=== PATIENT | female | born 1980 | race Caucasian/White ===

== ENCOUNTER 2019-01-10 10:16 | Inpatient (IN) | payer OTHER ==
[2019-01-09 17:12] VITALS: BMI 20.4
[~2019-01-10] VITALS: Ht 170.2 cm; Wt 59.9 kg
[2019-01-10] VITALS (29 sets, daily range): BP systolic 99–138; BP diastolic 55–68; PULSE 66–94; RESP 10–22; Ht 170.2 cm; Wt 59.9 kg
[~2019-01-10 10:16] MED LIST: ACET325T33 PO; BISA10SU55 PR; CEFAZOLIN 2 GM/50 ML (PMX) 50 ML IVPB ONE; DENIES; DOCU-144 PO; HYDR-3980 PO; LUBI24CA7 PO; MORP-72 PO; MORP15TA92 PO; ONDA4TAB13 PO; PREM625 PO; UDMYL PO; ZOLP10TA PO
[2019-01-10] MEDS: LACTATED RINGER'S 1,000 ML IV SCH (10:54)
[2019-01-10] MEDS ORDERED: GELATIN SIZE 100 SPONGE ONE (11:35)
[2019-01-10] MEDS ORDERED: THROMBIN 5000 UNIT (RECOTHROM) VIAL ONE (11:35)
[2019-01-10] MEDS ORDERED: BUPIVACAINE 0.5%/EPI (SDV) 30 ML INJ ONE (11:35)
[2019-01-10] MEDS ORDERED: CEFAZOLIN 1 GM INJ ONE (11:35)
[2019-01-10] MEDS ORDERED: HEPARIN 1000 UNITS/ML 10 ML INJ ONE (12:01)
[2019-01-10] MEDS ORDERED: HYDROmorphONE 1 MG/5 ML IV SYRINGE IV PRN ×3 (13:00)
[2019-01-10] MEDS ORDERED: LABETALOL HCL 20MG INJ IV PRN (13:00)
[2019-01-10] MEDS ORDERED: MIDAZOLAM 1 MG/ML 2 ML INJ IV PRN (13:00)
[2019-01-10] MEDS ORDERED: MEPERIDINE 25 MG INJ IV PRN (13:00)
[2019-01-10] MEDS ORDERED: ONDANSETRON 4 MG INJ IV PRN (13:00)
[2019-01-10] MEDS ORDERED: LORAZEPAM 2 MG INJ IV PRN (13:00)
[2019-01-10] MEDS ORDERED: MIDAZOLAM 1 MG/ML 2 ML INJ ONE (13:06)
[2019-01-10] MEDS ORDERED: HYDROmorphONE 2 MG/ML SYG ONE (13:06)
[2019-01-10] MEDS ORDERED: LIDOCAINE 2% (SDV) 5 ML INJ ONE (13:06)
[2019-01-10] MEDS ORDERED: ROCURONIUM 50 MG INJ ONE (13:06)
[2019-01-10] MEDS ORDERED: PROPOFOL 20 ML ONE (13:06)
[2019-01-10] MEDS ORDERED: ONDANSETRON 4 MG INJ ONE (13:54)
[2019-01-10] MEDS ORDERED: DEXAMETHASONE 4 MG/ML 5 ML INJ ONE (13:54)
[2019-01-10] MEDS ORDERED: FENTAnyl 50 MCG/ML VIAL ONE (14:32)
[2019-01-10] MEDS ORDERED: hydrALAzine 20 MG INJ ONE (14:50)
[2019-01-10] MEDS ORDERED: ROPIVACAINE 0.5 % 30 ML VIAL ONE (16:45)
[2019-01-10] MEDS: SOD CHLORIDE 0.45% 1,000 ML IV SCH (17:07)
[2019-01-10] MEDS ORDERED: HYDROCODONE/APAP (5/325) TAB PO PRN ×2 (17:30)
[2019-01-10] MEDS ORDERED: BETHANECHOL 25 MG TAB PO PRN (17:30)
[2019-01-10] MEDS ORDERED: CEPASTAT LOZENGE MT PRN (17:30)
[2019-01-10] MEDS ORDERED: ACETAMINOPHEN 325 MG TAB PO PRN (17:30)
[2019-01-10] MEDS ORDERED: NACL 0.9% 3 ML SYG IV SCH (17:30)
[2019-01-10] MEDS ORDERED: NALOXONE (0.4 MG/ML) INJ IV PRN (17:30)
[2019-01-10] MEDS ORDERED: MEPERIDINE 100 MG INJ ONE (17:33)
[2019-01-10] MEDS ORDERED: HYDROmorphONE 1 MG/5 ML IV SYRINGE IV ONE (18:14)
[2019-01-10] MEDS: HYDROmorphONE 0.2 MG/ML PCA IV SCH (18:44)
[2019-01-10] MEDS: CEFAZOLIN 1 GM/50 ML (PMX) 50 ML IVPB SCH (18:50)
[2019-01-10] MEDS: ZOLPIDEM 5 MG TAB PO PRN (22:22)
[2019-01-10] MEDS: DIAZEPAM 5 MG TAB PO PRN (22:22)
[2019-01-11] MEDS: DIPHENHYDRAMINE 50 MG CAP PO PRN ×2 (00:01→22:42)
[2019-01-11 00:39] VITALS: BP 108/62; PULSE 88; RESP 17
[2019-01-11] MEDS: LORAZEPAM 2 MG INJ IV PRN ×2 (02:22→16:09)
[2019-01-11] MEDS: SOD CHLORIDE 0.45% 1,000 ML IV SCH ×2 (03:07→05:19)
[2019-01-11] MEDS: CEFAZOLIN 1 GM/50 ML (PMX) 50 ML IVPB SCH ×3 (05:17→11:32)
[2019-01-11] MEDS: LACTATED RINGER'S 1,000 ML IV SCH (05:37)
[2019-01-11 06:07] VITALS: BP 107/58; PULSE 78; RESP 18
[2019-01-11 08:04] VITALS: BP_SYST 100; BP_SYST 114; BP_DIAS 61; BP_DIAS 70; PULSE 68; PULSE 76; RESP 18
[2019-01-11] MEDS: ACETAMINOPHEN 1000MG/100ML IV 100 ML IVPB SCH ×3 (09:12→18:59)
[2019-01-11] MEDS: DOCUSATE SODIUM 100 MG CAP PO SCH ×2 (09:12→20:31)
[2019-01-11] MEDS: HEPARIN 5,000 UNIT/1 ML VIAL SC SCH ×2 (09:17→20:37)
[2019-01-11] MEDS: HYDROmorphONE 0.2 MG/ML PCA IV SCH (10:12)
[2019-01-11] MEDS: DIAZEPAM 5 MG TAB PO PRN ×4 (10:28→22:42)
[2019-01-11] MEDS: HYDROCODONE/APAP (10/325) TAB PO PRN ×2 (11:32→15:31)
[2019-01-11] MEDS: ONDANSETRON 4 MG INJ IV PRN (13:47)
[2019-01-11] MEDS: morphine 2 MG INJ IV PRN ×2 (13:47→18:47)
[2019-01-11 19:25] VITALS: BP 104/62; PULSE 81; RESP 20
[2019-01-11] MEDS: ESTROGENS CONJUGATED 0.625 MG TAB PO SCH (20:30)
[2019-01-11] MEDS ORDERED: oxyCODONE 5 MG TAB PO PRN ×2 (21:00)
[2019-01-11] MEDS: ZOLPIDEM 5 MG TAB PO PRN (23:34)
[2019-01-12] MEDS: ACETAMINOPHEN 1000MG/100ML IV 100 ML IVPB SCH (00:57)
[2019-01-12] MEDS: oxyCODONE 15 MG TAB PO PRN ×3 (01:27→13:32)
[2019-01-12 02:05] VITALS: BP 97/54; PULSE 82; RESP 20
[2019-01-12] MEDS: morphine 2 MG INJ IV PRN ×3 (03:46→12:08)
[2019-01-12] MEDS: PANTOPRAZOLE (EC) 40 MG TAB PO SCH (06:08)
[2019-01-12 07:19] VITALS: BP 100/69; PULSE 80; RESP 15
[2019-01-12] MEDS: DOCUSATE SODIUM 100 MG CAP PO SCH ×2 (09:51→21:14)
[2019-01-12] MEDS: HYDROCODONE/APAP (10/325) TAB PO PRN (09:51)
[2019-01-12] MEDS: HEPARIN 5,000 UNIT/1 ML VIAL SC SCH ×2 (09:54→21:16)
[2019-01-12] MEDS: AL HYDROX/MG HYDROX/SIMETH 30 ML CUP PO PRN ×2 (11:50→21:11)
[2019-01-12] MEDS: DIAZEPAM 5 MG TAB PO PRN ×2 (13:04→19:31)
[2019-01-12] MEDS: SOD FERRIC GLUC COMPLX 125 MG in SOD CHLORIDE 0.9% 100 ML IVPB SCH (13:05)
[2019-01-12] MEDS ORDERED: HYDROmorphONE 1 MG/ML SYG IV PRN (14:00)
[2019-01-12 17:27] VITALS: BP 97/53; PULSE 88; RESP 15
[2019-01-12] MEDS: HYDROmorphONE 1 MG/ML SYG IV PRN ×2 (17:41→22:41)
[2019-01-12 19:55] VITALS: BP 92/53; PULSE 87; RESP 20
[2019-01-12] MEDS: ZOLPIDEM 5 MG TAB PO PRN (21:12)
[2019-01-12] MEDS: LUBIPROSTONE 8 MCG CAPSULE PO SCH (21:13)
[2019-01-12] MEDS: morphine (ER) 15 MG TAB PO SCH (21:13)
[2019-01-12] MEDS: ESTROGENS CONJUGATED 0.625 MG TAB PO SCH (21:14)
[2019-01-13] MEDS: DIAZEPAM 5 MG TAB PO PRN ×3 (00:27→12:26)
[2019-01-13] MEDS: DIPHENHYDRAMINE 50 MG CAP PO PRN (00:27)
[2019-01-13] MEDS: HYDROmorphONE 1 MG/ML SYG IV PRN ×2 (01:54→06:17)
[2019-01-13 02:31] VITALS: BP 94/66; PULSE 88; RESP 20
[2019-01-13] MEDS: PANTOPRAZOLE (EC) 40 MG TAB PO SCH (06:16)
[2019-01-13 07:12] VITALS: BP 96/60; PULSE 85; RESP 17
[2019-01-13] MEDS ORDERED: HYDROCODONE/APAP (10/325) TAB PO PRN (08:00)
[2019-01-13] MEDS: ONDANSETRON 4 MG INJ IV PRN (08:02)
[2019-01-13] MEDS: morphine (ER) 15 MG TAB PO SCH (08:06)
[2019-01-13] MEDS: DOCUSATE SODIUM 100 MG CAP PO SCH (08:06)
[2019-01-13] MEDS: LUBIPROSTONE 8 MCG CAPSULE PO SCH (08:07)
[2019-01-13] MEDS: HEPARIN 5,000 UNIT/1 ML VIAL SC SCH (08:09)
[2019-01-13] MEDS ORDERED: BISACODYL 10 MG SUPP PR PRN (10:00)
[2019-01-13] MEDS ORDERED: METHYLNALTREXONE 12 MG/0.6 ML VIAL SC ONE (12:30)
[2019-01-13] MEDS: SOD FERRIC GLUC COMPLX 125 MG in SOD CHLORIDE 0.9% 100 ML IVPB SCH (13:35)
[2019-01-13 14:06] VITALS: BP 104/66; PULSE 94; RESP 18
[2019-01-13 17:45] VITALS: PULSE 92
[2019-01-13] MEDS ORDERED: LUBIPROSTONE 24 MCG CAP PO SCH (21:00)
== END 2019-01-13 18:12 | disposition home or self-care (01) | DRG 460 ==
LOC: REC 10:16 → MS1 20:37
PROVIDERS: ADMIT Neurological Surgery; ATTEND Neurological Surgery
PROC: 0ST40ZZ Resection of Lumbosacral Disc, Open Approach (ICD-10-PCS; 2019-01-10)
PROC: 0SG30A0 Fusion of Lumbosacral Joint with Interbody Fusion Device, Anterior Approach, Anterior Column, Open Approach (ICD-10-PCS; principal; 2019-01-10 12:30)
DX: M51.17 Intervertebral disc disorders with radiculopathy, lumbosacral region (principal); F11.20 Opioid dependence, uncomplicated; D50.9 Iron deficiency anemia, unspecified
CPT/HCPCS: 72100; 72110; 74018; 80048; 83540; 85014; 85018; 85025; 86850; 86900; 86901; 86920; 87086; 88304; 97116; 97161; 97167; J0131; J0360; J0690; J1100; J1170; J1644; J2060; J2175; J2250; J2270; J2405; J2795; J2916; J3010; J7120; L0464